=== PATIENT | male | born 1970 | race Two or more races ===

== ENCOUNTER 2020-05-21 13:02 | Day surgery (SDC) | payer OTHER ==
[~2020-05-21 13:02] MED LIST: E.E.S. 400400 MG PO
== END 2020-05-21 16:40 | disposition home or self-care (01) ==
LOC: AMB-ENDOS 13:02
PROVIDERS: ATTEND Colon & Rectal Surgery
DX: D12.5 Benign neoplasm of sigmoid colon (principal); K64.1 Second degree hemorrhoids; Z20.828 Contact with and (suspected) exposure to other viral communicable diseases

== ENCOUNTER 2020-09-24 09:51 | Day surgery (SDC) | payer OTHER ==
[~2020-09-24 09:51] MED LIST changes: +CASODEX50 MG PO; +ERLEADA60 MG PO; +LIPITOR20 MG PO; +METFORMIN HCL500 M2 PO; +NORVASC5 MG PO; +TAMS0.4C PO; +TOPROL XL25 M1 PO; +VALSARTAN-HCTZ1 EAC3 PO
== END 2020-09-24 21:48 | disposition home or self-care (01) ==
LOC: CIR.AMB 09:51
PROVIDERS: ATTEND Urology
DX: N21.0 Calculus in bladder (principal); Z20.822 Contact with and (suspected) exposure to COVID-19

== ENCOUNTER 2020-10-21 13:09 | Outpatient (CLI) | payer OTHER | END 2020-10-21 13:12 | disposition home or self-care (01) | LOC: PPH VACUNA 13:09 | DX: Z23 Encounter for immunization (principal) ==

== ENCOUNTER 2021-03-10 09:53 | Outpatient (CLI) | payer OTHER | END 2021-03-10 10:11 | disposition home or self-care (01) | LOC: TOM 09:53 | PROVIDERS: ATTEND Urology | DX: R33.8 Other retention of urine (principal); N40.1 Benign prostatic hyperplasia with lower urinary tract symptoms; C61 Malignant neoplasm of prostate; N21.0 Calculus in bladder ==

== ENCOUNTER → 2021-03-11 15:00 | Outpatient (CLI) | payer OTHER | END | disposition home or self-care (01) | LOC: PPH VACUNA 15:00 | DX: Z23 Encounter for immunization (principal) ==

== ENCOUNTER 2024-06-19 12:36 | Emergency (ER) | payer OTHER ==
[~2024-06-19] VITALS: Ht 177.8 cm; Wt 127.0 kg
[2024-06-19] MEDS ORDERED: LORazepam 2 MG/ML VIAL IM ONE (13:30)
[2024-06-19 14:47] LABS: HEMATOCRIT 40.8 % (39.0-48.0); HEMOGLOBIN 13.8 g/dL (13-16.00); MEAN CELL VOLUME 92.4 fL (80.0-100.00); MEAN CORPUSCULAR HEMOGLOBIN 31.2 pg (27.00-32.0); MEAN CORPUSCULAR HGB CONC 33.7 g/dl (32.0-36.0); PLATELET COUNT 220 K/uL (150-450); RED BLOOD COUNT 4.41 M/uL (4.00-6.00); RED CELL DISTRIBUTION WIDTH 13.9 % (11.5-14.5)
[2024-06-19 15:21] LABS: URINE APPEARANCE Cloudy; URINE BILIRRUBIN Negative (NEGATIVE); URINE BLOOD Trace; URINE COLOR Yellow; URINE GLUCOSE Negative (NEGATIVE); URINE KETONE Negative (NEGATIVE); URINE LEUKOCYTE Negative; URINE NITRATE Negative; URINE PROTEIN Negative (NEGATIVE); URINE UROBILINOGEN 0.2 E.U./dl
[2024-06-19 15:25] LABS: URINE BACTERIA 13.8 uL (0.0-1933); URINE EPITHELIAL CELLS 3.8 uL (0.0-38.8); URINE RBC 13.5 uL (0.0-20.8); URINE WBC 7.4 uL (0.0-23.2)
[2024-06-19 15:27] LABS: URINE CAST 0.76 uL (0.0-1.40)
[2024-06-19 15:30] LABS: BILIRUBIN TOTAL 0.62 mg/dL (0.3-1.2); CALCIUM 9.4 mg/dL (8.5-10.1); CREATININE SERUM 0.84 mg/dL (0.70-1.30); GFR 94.87; GLOBULINA 3.9 G/DL (2.4-3.5); POTASSIUM 3.62 mEq/L (3.5-5.1); TOTAL PROTEIN 7.9 gm/dL (6.4-8.2)
[2024-06-19 15:45] LABS: COCAINE NEGATIVE (NEGATIVE); METHADONE NEGATIVE (NEGATIVE); OPIATES NEGATIVE (NEGATIVE); THC ( Cannabinoids) NEGATIVE (NEGATIVE)
== END 2024-06-19 20:00 | disposition designated cancer center or children's hospital (05) ==
LOC: ER 12:38
PROVIDERS: Emergency Medicine
DX: R45.851 Suicidal ideations (principal); E11.9 Type 2 diabetes mellitus without complications; Z79.84 Long term (current) use of oral hypoglycemic drugs; I10 Essential (primary) hypertension; Z20.822 Contact with and (suspected) exposure to COVID-19